=== PATIENT | female | born 1955 ===

== ENCOUNTER → 2018-02-25 | Outpatient (CLI) | payer OTHER ==
--- NOTE | 2018-03-04 12:27 | MM ---
Reason for exam: screening (asymptomatic). Last mammogram was performed 2 years and 11 months ago. History: Patient is postmenopausal. Retro-pectoral saline implants, 2002. Physical Findings: A clinical breast exam by your physician is recommended on an annual basis and results should be correlated with mammographic findings. MG Screening Mammo Implant/CAD Bilateral CC, MLO, and ID view(s) were taken. Prior study comparison: April 11, 2015, mammogram, performed at [facility]. November 24, 2012, mammogram, performed at [facility]. The breast tissue is heterogeneously dense. This may lower the sensitivity of mammography. Stable benign calcifications. Bilateral implants are intact. No significant changes when compared with prior studies. ASSESSMENT: Benign, BI-RAD 2 RECOMMENDATION: Routine screening mammogram of both breasts in 1 year.
== END | disposition home or self-care (01) ==
LOC: RADMAMWWP 13:37
PROVIDERS: ATTEND Family Medicine
DX: Z12.31 Encounter for screening mammogram for malignant neoplasm of breast (principal)
CPT/HCPCS: 77067

== ENCOUNTER → 2020-09-21 | Outpatient (CLI) | payer MEDICARE, OTHER ==
--- NOTE | 2020-09-22 14:38 | MM ---
Reason for exam: screening (asymptomatic). Last mammogram was performed 2 years and 7 months ago. History: Patient is postmenopausal. Pre-pectoral saline implants in both breasts, 2002. Physical Findings: A clinical breast exam by your physician is recommended on an annual basis and results should be correlated with mammographic findings. MG 3D Screen Mammo Imp/Cad Bilateral CC and MLO view(s) were taken. Prior study comparison: February 25, 2018, bilateral MG screening mammo implant/CAD. April 11, 2015, mammogram, performed at [place]. There are scattered fibroglandular densities. Bilateral breast prothesis. No significant changes when compared with prior studies. ASSESSMENT: Benign, BI-RAD 2 RECOMMENDATION: Routine screening mammogram of both breasts in 1 year.
== END | disposition home or self-care (01) ==
LOC: RADMAMWWP 09:39
PROVIDERS: ATTEND Family Medicine
DX: Z12.31 Encounter for screening mammogram for malignant neoplasm of breast (principal)
CPT/HCPCS: 77063; 77067

== ENCOUNTER → 2021-09-24 | Outpatient (CLI) | payer MEDICARE, OTHER ==
--- NOTE | 2021-09-25 10:14 | MM ---
Reason for exam: screening (asymptomatic). Last mammogram was performed 1 year ago. History: Patient is postmenopausal. Family history of breast cancer in cousin. Pre-pectoral saline implants in both breasts, 2002. Physical Findings: A clinical breast exam by your physician is recommended on an annual basis and results should be correlated with mammographic findings. MG 3D Screen Mammo Imp/Cad Bilateral CC, MLO, and ID view(s) were taken. Prior study comparison: September 21, 2020, bilateral MG 3d screen mammo imp/cad. February 25, 2018, bilateral MG screening mammo implant/CAD. The breast tissue is heterogeneously dense. This may lower the sensitivity of mammography. There are benign appearing round calcifications in the left breast. There is no discrete abnormality. Bilateral subglandular implants. ASSESSMENT: Benign, BI-RAD 2 RECOMMENDATION: Routine screening mammogram of both breasts in 1 year.
== END | disposition home or self-care (01) ==
LOC: RADMAMWWP 08:34
PROVIDERS: ATTEND Family Medicine
DX: Z12.31 Encounter for screening mammogram for malignant neoplasm of breast (principal)
CPT/HCPCS: 77063; 77067

== ENCOUNTER → 2023-07-15 | Outpatient (CLI) | payer MEDICARE, OTHER ==
--- NOTE | 2023-07-15 09:54 | XR ---
EXAM TYPE: LUMBAR SPINE X RAY SERIES COMPARISON: NONE HISTORY: Pain TECHNIQUE: 4 views are submitted. FINDINGS: Alignment is anatomic. The pedicles are intact. The transverse processes are intact. There is diff use osteopenia. There is mild hypertrophic and degenerative disc disease at all levels with facet art hropathy. Minimal anterior listhesis L4 on L5 which is stable on flexion and neutral views and correc ts on extension view. 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 Surgical clip overlying the pelvis. Vascular calcificatio ns noted. IMPRESSION: 1. Multilevel mild hypertrophic and degenerative disc disease with multilevel facet arthropathy. Anim al anterior listhesis L4-L5 as discussed above..
== END | disposition home or self-care (01) ==
LOC: RADXRMAIN 09:25
PROVIDERS: ATTEND Neurological Surgery
DX: M51.36 Other intervertebral disc degeneration, lumbar region (principal); M47.816 Spondylosis without myelopathy or radiculopathy, lumbar region; M43.16 Spondylolisthesis, lumbar region; R29.898 Other symptoms and signs involving the musculoskeletal system; M79.604 Pain in right leg
CPT/HCPCS: 72114; 82607; 82746

== ENCOUNTER → 2023-12-25 | Outpatient (CLI) | payer MEDICARE, OTHER ==
--- NOTE | 2023-12-26 07:56 | US ---
EXAMINATION TYPE: US Aorta Screening DATE OF EXAM: 12/25/2023 COMPARISON: NONE CLINICAL INDICATION: Female, 68 years old with history of I71.40 ABDOMINAL AORTIC ANEURYSM, WITHOUT R UPTURE,; No HTN. Patient states her abdomen feels full TECHNIQUE: Multiple sonographic images of the abdominal aorta are obtained. FINDINGS: EXAM MEASUREMENTS: Abdominal Aorta: Proximal: 2.3 x 2.4 cm Mid: 1.9 x 1.9 cm Distal: 1.5 x 1.6 cm Bifurcation: Right Iliac: 0.9 x 1.1 cm Left Iliac: 0.8 x 1.2 cm TEST ENGINEERING INTERN NOTES: No AAA visualized at time of scan. Atherosclerotic changes seen. IMPRESSION: Mild atherosclerotic changes of abdominal aorta but no aneurysmal dilatation..
== END | disposition home or self-care (01) ==
LOC: RADUSWWP 07:14
PROVIDERS: ATTEND Family Medicine
DX: I70.0 Atherosclerosis of aorta (principal)
CPT/HCPCS: 76706

== ENCOUNTER → 2024-10-27 | Outpatient (CLI) | payer MEDICARE, OTHER ==
--- NOTE | 2024-10-27 09:53 | MM ---
Reason for Exam: Screening (asymptomatic). Last mammogram was performed 3 year(s) and 1 month(s) ago. Patient History: Menarche at age 12. First Full-Term at age 17. Hysterectomy at age 30. Postmenopausal. Patient has history of breast feeding. 2002, Bilateral Implants. Maternal cousin had breast cancer. Risk Values: Sadia 5 year model risk: 1.2%. NCI Lifetime model risk: 3.9%. Prior Study Comparison: 02/25/2018 Bilateral Screening Mammogram, [facility]. 09/21/2020 Bilateral Screening Mammogram, [facility]. 09/24/2021 Bilateral Screening Mammogram, [facility]. Tissue Density: There are scattered areas of fibroglandular density. Findings: Analyzed By CAD. There is no suspicious group of microcalcifications or new suspicious mass in either breast. Bilateral implants are intact. Overall Assessment: Benign, BI-RAD 2 Management: Screening Mammogram of both breasts in 1 year. . Patient should continue monthly self-breast exams. A clinical breast exam by your physician is recommended on an annual basis. This exam should not preclude additional follow-up of suspicious palpable abnormalities. Note on Sadia scores and lifetime risk: 1. A Sadia score greater than 3% is considered moderate risk. If this is the case, consider specialist referral to assess eligibility for a risk reducing agent. 2. If overall lifetime risk for the development of breast cancer is 20% or higher, the patient may qualify for future screening with alternating mammogram and breast MRI. [facility], , 10/27/2024 9:50 AM. Electronically signed and approved by: Chris Sevilla M.D. Radiologis
--- NOTE | 2024-10-27 10:27 | BD ---
EXAMINATION TYPE: Axial Bone Density DATE OF EXAM: 10/27/2024 CLINICAL HISTORY: 69 years old Female. ICD-10 CODE: Z780 ASYMPTOMATIC MARLENE STATE , Additional Histor y: Height: 65.5 Weight: 138 FRAX RISK QUESTIONS: Family History (Parent hip fracture): no History of Fracture in Adulthood: no Secondary Osteoporosis: no Current Tobacco Use: yes RISK FACTORS HISTORY OF: Surgery to Spine/Hip(right/left)/Wrist (right/left): no MEDICATIONS: Thyroid Medications: no Osteoporosis Medications: no EXAM MEASUREMENTS: Bone mineral densitometry was performed using the [employer]. Bone mineral density as measured about the Lumbar spine is: ----- L1-L4(G/cm2): 1.164 T Score Values are as follows: ----- L1: -0.6 ----- L2: -0.6 ----- L3: 0.4 ----- L4: 0.0 ----- L1-L4: -0.1 Z Score Values are as follows: ----- L1: 1.1 ----- L2: 1.2 ----- L3: 2.1 ----- L4: 1.7 ----- L1-L4: 1.6 Bone mineral density baseline Bone mineral density about the R hip (g/cm2): 0.878 Bone mineral density about the L hip (g/cm2): 0.861 T Score values are as follows: -----R Neck: -1.4 -----L Neck: -1.5 -----R Total: -1.0 -----L Total: -1.2 Z Score values are as follows: -----R Neck: 0.3 -----L Neck: 0.2 -----R Total: 0.5 -----L Total: 0.3 Bone mineral density baseline FRAX%s: The graph provided illustrates a 9.7% chance for a major osteoporotic fx and a 2.3% chance fo r the hips probability for fx in 10 years time. IMPRESSION: Normal (Values between +1 and -1 indicate normal bone mass). Consider repeating this study in 5 year s or sooner if there is some new clinical indication. NOTE: T-SCORE=SD OF THE YOUNG ADULT MEAN. [facility], , 10/27/2024 10:25 AM
== END | disposition home or self-care (01) ==
LOC: RADMAMWWP 08:07
PROVIDERS: ATTEND Family Medicine
DX: Z12.31 Encounter for screening mammogram for malignant neoplasm of breast (principal); R92.323 Mammographic fibroglandular density, bilateral breasts; Z78.0 Asymptomatic menopausal state; Z80.3 Family history of malignant neoplasm of breast
CPT/HCPCS: 77063; 77067; 77080